=== PATIENT | male | born 1960 | race Caucasian/White ===

== ENCOUNTER 2016-09-16 17:30 | Inpatient (IN) | payer OTHER ==
--- NOTE | ~2016-09-16 | PN ---
Unit #: [id number] #: [id number] Patient: DANISH MORGAN [id number] [facility] [address] [place] [address] [id number] MR#: [id number] NAME: DANISH MORGAN ROOM: 30 Age: 56 Sex: M Admission Date: 09/16/2016 : 1960 Attending Physician: Zo Williamson M.D. Admitting Physician: Zo Williamson M.D. Primary Care Physician: Dexter Doctor Not In System [facility] PROGRESS NOTES DATE 09/20/2016 DISCUSSION Mr. Morgan is a 56-year-old, white male who was seen today and chart was reviewed and case was discussed with the staff. He has been anxious, withdrawn, disorganized, and rather seclusive to himself with bizarre behavior, thought blocking, difficulty communicating interaction and has been expressing significant anxiety. Meanwhile, he has been taking medication and tolerating them fairly well with no reported side effects. MENTAL STATUS EXAM Middle-aged white male who was casually dressed with marginal personal hygiene, appears to be in no acute distress or discomfort. He was awake and alert with impaired attention and concentration. His mood was anxious with congruent affect. His speech was slow and tangential. His thought processes were disorganized with some looseness of associations and paranoid ideations. His insight and judgement remains significantly impaired. TREATMENT PLAN 1. We will continue him on his current medications and treatment protocol. We will monitor his response to the medication and make further adjustments as needed. 2. We will continue to follow up. Dictated by... Brianda Ram/tawanna TD: 09/21/2016 04:21 JOB #: [id number] Unit #: [id number] #: [id number] Patient: DANISH MORGAN [facility] PROGRESS NOTES Page 1 of 1 X Zo Williamson MD PROGRESS NOTE
--- NOTE | ~2016-09-16 | PN ---
Unit #: [id number] #: [id number] Patient: DANISH MORGAN [id number] [facility] [address] [place] [address] [id number] I MR#: [id number] NAME: DANISH MORGAN ROOM: 30 Age: 56 Sex: M Admission Date: 09/16/2016 : 1960 Attending Physician: Zo Williamson M.D. Admitting Physician: Zo Williamson M.D. Primary Care Physician: Dexter Doctor Not In System [facility] PROGRESS NOTES DATE OF SERVICE 09/21/2016 DISCUSSION Mr. Morgan is a 56-year-old white male who was seen today. Chart was reviewed and case was discussed with the staff. He appears to be doing somewhat better and has been showing improvement in his depression and anxiety and has been cooperative and compliant with treatment recommendations as he has been taking the medications and tolerating them fairly well with no reported side effects. MENTAL STATUS EXAMINATION Middle-aged white male who is casually dressed with fair personal hygiene, appears to be in no acute distress or discomfort. The patient was awake and alert on interaction with intact orientation. His mood is anxious and depressed with congruent affect. His speech is slow and restricted in content. His thought process were disorganized with some looseness of associations and flight of ideas. His insight and judgment remain significantly impaired. TREATMENT PLAN 1. We will continue him on his current medications and treatment protocol. We will monitor his response to the medications and make further adjustments as needed. 2. We will continue to follow up. Dictated by... Brianda Ram/pino TD: 09/22/2016 09:00 JOB #: [id number] Unit #: [id number] #: [id number] Patient: DANISH MORGAN PROGRESS NOTES Page 1 of 1 X Zo Williamson MD PROGRESS NOTE
--- NOTE | ~2016-09-16 | HP ---
Unit #: [id number] #: [id number] Patient: DANISH BAZAN [id number] [place] [address] [id number] I MR#: [id number] NAME: DANISH BAZAN ROOM: P130 Age: 56 Sex: M Admission Date: 09/16/2016 : 1960 Attending Physician: Zo Williamson M.D. Admitting Physician: Zo Williamson M.D. Primary Care Physician: Generic Doctor Not In System HISTORY AND PHYSICAL HISTORY OF PRESENT ILLNESS Danish is a 56 year old admitted to [address] [place] [address] with depression and verbalizing wanting to hurt himself. PAST MEDICAL HISTORY 1. Degenerative disc disease. 2. History of DVT, years ago. PAST SURGICAL HISTORY Bilateral inguinal hernia repair. ALLERGIES Haldol, trazodone, Benadryl, Seroquel, Celebrex, Cymbalta, Latuda. SOCIAL HISTORY Smokes less than 1 pack per day. Denies alcohol and illicit drug use. FAMILY HISTORY Medically noncontributory. REVIEW OF SYSTEMS CONSTITUTIONAL: No fever or chills. HEENT: Denies any sore throat, ear pain or runny nose. CARDIOVASCULAR: Denies chest pain, irregular heart rhythm or palpitations. CHEST: Denies shortness of breath or cough. No hemoptysis. GASTROINTESTINAL: Denies nausea, vomiting, diarrhea or chronic constipation. ENDOCRINE: Denies history of increased thirst or urination. No recent significant weight loss or gain. GENITOURINARY: Denies dysuria, frequency, or hematuria. SKIN: Denies any rashes. HEMATOLOGIC: Denies history of increased bleeding or bruising. MUSCULOSKELETAL: Denies any hot, swollen joints. No generalized muscle pain. NEUROLOGIC: Denies problems with vision or speech. No frequent, severe headaches. No numbness, tingling or weakness in any extremities. Denies loss of bladder or bowel control. CURRENT MEDICATIONS 1. Protonix 40 mg daily. 2. Amitriptyline 100 mg q.h.s. 3. Tegretol XR 300 mg b.i.d. 4. Milk of Magnesia p.r.n. Unit #: [id number] #: [id number] Patient: DANISH BAZAN 5. Maalox p.r.n. 6. Tylenol p.r.n. 7. Vistaril p.r.n. PHYSICAL EXAMINATION GENERAL: Alert, well-nourished, in no apparent distress. VITAL SIGNS: Blood pressure 142/68, heart rate 80, respirations 16, temperature 98.6. WEIGHT: 230. HEIGHT: 6 feet 2 inches. SKIN: Warm and dry without rash or lesion. HEENT: Normocephalic. TMs not viewed. Oral and nasal passages clear. Conjunctivae clear. PERRLA. EOMs intact. NECK: Supple without lymphadenopathy or thyromegaly. HEART: Regular rate and rhythm without murmur. LUNGS: Clear. ABDOMEN: Soft, nontender. : Not done. EXTREMITIES: No evidence of cyanosis, clubbing or edema. Moves all without focal deficit. NEUROLOGICAL: Grossly within normal limits. Cranial Nerves: II: Visual serrano are intact. III, IV AND : Extraocular movements are intact. Pupils are equal, round and reactive to light. V: Facial sensation is grossly normal. VII: Facial movements and expression are normal. VIII: Auditory acuity grossly intact. IX, X: Uvula is midline. Phonation is normal. XI: Patient shrugs shoulders and turns head normally. XII: Tongue protrudes in the midline. Sensory and Motor Function: Sensory and motor sensation is grossly normal. Motor: moves all extremities well. Coordination: Gait is normal. Deep Tendon Reflexes: Intact. IMPRESSION Psychiatric admission. RECOMMENDATIONS PSYCHIATRIC: Per psychiatrist. MEDICAL: See no contraindication to participate in facility's activities. MEDICAL PROGNOSIS Good. MEDICAL CONDITION Stable. Dictated by... Estefanía Russell P.A.-C. for Brianda Palafox/rehan TD: 09/18/2016 14:51 JOB #: [id number] Unit #: [id number] #: [id number] Patient: DANISH BAZAN HISTORY AND PHYSICAL Page 1 of 1 X Estefanía Russell HISTORY AND PHYSICAL
--- NOTE | ~2016-09-16 | PA ---
Unit #: [id number] #: [id number] Patient: DANISH MORGAN [id number] [facility] [address] [place] [address] [id number] I MR#: [id number] NAME: DANISH MORGAN ROOM: P130 Age: 56 Sex: M Admission Date: 09/16/2016 : 1960 Date of Assessment: Attending Physician: Zo Williamson M.D. Admitting Physician: Zo Williamson M.D. Primary Care Physician: Dexter Doctor Not In System PSYCHIATRIC ASSESSMENT DATE OF SERVICE 09/17/2016. IDENTIFYING DATA Mr. Morgan is a 56-year-old single white male who is a resident of [place], [place] and was self-referred to the hospital on a voluntary basis as a transfer from [facility]. CHIEF COMPLAINT "Suicidal ideations." HISTORY OF PRESENT ILLNESS Mr. Morgan is a 56-year-old white male who presented to [facility] with suicidal ideation and plan to walk in front of a train. The patient reports that he is feeling suicidal because he thinks the others are out to kill him and reports that he is also having an increasing anger with plan to stab himself and reports that he has been noncompliant with his home medications over the past week and that he relocated from [place] to [place] this week and is currently homeless and has been decompensating, and reports increasing depression, anger, agitation, irritability, feelings of hopelessness and helplessness, and suicidal ideation and as such, recommendation for inpatient level of care for safety and stabilization was made. SUBSTANCE ABUSE HISTORY The patient denies any history of alcohol or drug abuse. PAST PSYCHIATRIC HISTORY The patient has had a history of psychiatric treatment in the past, though he reports that he is currently relocating from [place] to [place] and does not have a provider and has not been taking his medications and as such, has been decompensating. PAST MEDICAL HISTORY Gastroesophageal reflux disease. ALLERGIES No known medication allergies. PERSONAL AND SOCIAL HISTORY A 56-year-old white male who reports that he is single, unemployed, and essentially homeless and has poor social support system. Unit #: [id number] #: [id number] Patient: DANISH MORGAN MENTAL STATUS EXAMINATION Middle-aged white male who was casually dressed with fair personal hygiene, and appears to be in no acute distress or discomfort. He was awake and alert on interaction with intact orientation to time, place, and person. His mood was anxious and depressed with a congruent affect. His speech was slow and restricted in content. His thought processes were disorganized with some looseness of associations, paranoid ideations, suicidal ideations, and auditory hallucinations. His insight and judgment remain significantly impaired. DIAGNOSTIC IMPRESSION Psychiatric: Bipolar disorder, most recent episode depressed, recurrent, moderate, without psychotic features. Medical: None. Stressors: Moderate psychosocial stressors. TREATMENT PLAN 1. The patient has presented with a history of mood disorder and has been decompensating and will need inpatient hospitalization for safety and stabilization. We will start him back on his home medications. We will adjust the medications and monitor response. 2. Supportive therapy was provided to the patient. 3. Safe, structured, and nourishing environment will be provided. ESTIMATED LENGTH OF STAY 5 to 7 days. ABILITY TO HELP SELF Limited. WILLINGNESS TO HELP SELF The patient appears to be willing to help self. STRENGTHS 1. Communicative. 2. Cooperative. PROBLEMS 1. Chronic dysphoric symptoms. 2. Poor social support system. DISCHARGE CRITERIA This will be contingent upon the patient's ability to show resolution of his depression and anxiety and his ability to stay safe to himself and others, particularly after discharge from the hospital. Dictated by... Brianda Ram/angie TD: 09/17/2016 06:55 JOB #: [id number] Unit #: [id number] #: [id number] Patient: DANISH MORGAN PSYCHIATRIC ASSESSMENT Page 1 of 1 X Zo Williamson MD X PSYCHIATRIC ASSESSMENT
--- NOTE | ~2016-09-16 | DS ---
Unit #: [id number] #: [id number] [facility]APP [id number] [facility] [place] [address] [id number] I MR#: [id number] NAME: DANISH MORGAN ROOM: 30 Age: 56 Sex: M Admission Date: 09/16/2016 : 1960 Discharge Date: 09/22/2016 Attending Physician: Zo Williamson M.D. Primary Care Physician: Generic Doctor Not In System DISCHARGE SUMMARY IDENTIFYING DATA Mr. Morgan is a 46-year-old white male with a history of mood disorder, who was self referred to the hospital. DISCHARGE DIAGNOSES Psychiatric: Bipolar disorder, most recent episode depressed, recurrent, moderate, without psychotic features. Medical: None. Stressors: Moderate psychosocial stressors. HISTORY OF PRESENT ILLNESS Please see initial psychiatric evaluation for details. PAST PSYCHIATRIC HISTORY Please see initial psychiatric evaluation for details. PAST MEDICAL HISTORY Please see initial psychiatric evaluation for details. HOSPITAL COURSE The patient was admitted to the adult psychiatric unit at [facility] zamzam [place] on 72 hours hold and was started back on his home medications including his Seroquel, which was titrated up. Risperdal, which he did not like very much. We then switched him to Zyprexa with good tolerability and therapeutic response. The patient is taking medications regularly and is tolerating them fairly well and was able to show a decent therapeutic response and as well as continue treatment on an outpatient basis and as such, it was decided that he will be discharged home and will continue treatment on an outpatient basis. DISCHARGE CONDITION Stable. PROGNOSIS Fair. Dictated by... Zo Williamson M.D. IAA/modl Unit #: [id number] #: [id number] Patient: DANISH RAPP TD: 10/27/2016 07:05 JOB #: [id number] DISCHARGE SUMMARY Page 1 of 1 X Zo Williamson MD X DISCHARGE SUMMARY
--- NOTE | ~2016-09-16 | PN ---
Unit #: [id number] #: [id number] Patient: DANISH MORGAN [id number] [facility] [address] [place] [address] [id number] MR#: [id number] NAME: DANISH MORGAN ROOM: 30 Age: 56 Sex: M Admission Date: 09/16/2016 : 1960 Attending Physician: Zo Williamson M.D. Admitting Physician: Zo Williamson M.D. Primary Care Physician: Dexter Doctor Not In System [facility] [employer] NOTES DATE OF SERVICE 09/19/2016 DISCUSSION Mr. Morgan is a 56-year-old white male who was seen today. Chart was reviewed and case was discussed with the staff. He has been anxious, withdrawn, disorganized and seclusive to himself, very anxious and restless with significant thought blocking, having difficulty expressing himself, and every time I initiate the medication, he comes back stating that he is not going to take his medications and that she has an allergic reaction to that medication. Seroquel was switched to Risperdal yesterday. Even though there is no allergies listed to Risperdal, he now states that he is allergic to Risperdal, and therefore he does not want to take the medication. He complains of anxiety and keeps on demanding Klonopin to be given to him. MENTAL STATUS EXAMINATION Middle-aged white male who is casually dressed with fair personal hygiene, appears to be in no acute distress or discomfort. He was awake and alert with impaired attention and concentration. His mood is anxious with congruent affect. Speech is slow and tangential. His thought processes were disorganized with some looseness of associations and flight of ideas. His insight and judgment remain significantly impaired. TREATMENT PLAN 1. We will continue him on his current medications and treatment protocol. We will monitor his response to the medications and make further adjustments as needed. 2. We will continue to follow up. Dictated by... Zo Williamson M.D. ARLENE/bzg TD: 09/20/2016 10:37 JOB #: [id number] Unit #: [id number] #: [id number] Patient: DANISH MORGAN [facility] NOTES Page 1 of 1 X Zo Williamson MD PROGRESS NOTE
--- NOTE | ~2016-09-16 | PN ---
Unit #: [id number] #: [id number] Patient: DANISH MORGAN [id number] [facility] [address] [place] [address] [id number] I MR#: [id number] NAME: DANISH MORGAN ROOM: 30 Age: 56 Sex: M Admission Date: 09/16/2016 : 1960 Attending Physician: Zo Williamson M.D. Admitting Physician: Zo Williamson M.D. Primary Care Physician: Generic Doctor Not In System [facility] PROGRESS NOTES DATE 09/22/2016 DISCUSSION Mr. Morgan is a 56-year-old white male who was seen today and chart was reviewed and case was discussed with the staff. He has been anxious, withdrawn and rather seclusive to himself. Meanwhile, he reports doing better in his mood and depression and has been taking medications and tolerating them fairly well. MENTAL STATUS EXAMINATION Middle-aged white male who was casually dressed with fair personal hygiene and appears to be in no acute distress or discomfort. He was awake and alert on interaction with intact orientation. His mood was anxious with congruent affect. He denies any suicidal or homicidal ideation. His insight and judgement remains slightly impaired. TREATMENT PLAN 1. We will continue him on his current medications and treatment protocol and will monitor his response to the medications and make further adjustments as needed. 2. Will continue to follow up. Dictated by... Zo Williamson M.D. IAA/rehan TD: 09/22/2016 17:22 JOB #: [id number] Unit #: [id number] #: [id number] [facility] Page 1 of 1 X Zo Williamson MD PROGRESS NOTE
--- NOTE | ~2016-09-16 | PN ---
Unit #: [id number] #: [id number] Patient: DANISH MORGAN [id number] [facility] [address] [place] [address] [id number] MR#: [id number] NAME: DANISH MORGAN ROOM: 30 Age: 56 Sex: M Admission Date: 09/16/2016 : 1960 Attending Physician: Zo Williamson M.D. Admitting Physician: Zo Williamson M.D. Primary Care Physician: Dexter Doctor Not In System [facility] PROGRESS NOTES DATE 09/18/2016 DISCUSSION Mr. Morgan is a 56-year-old, white male who was seen today and chart was reviewed and case was discussed with the staff. He was seen to be anxious, restless, laying in his bed and was constantly moving and scratching his bottom and explaining with significant anxiety and was unable to carry on any meaningful conversation as he was trying to speak and had thought blocking and was rubbing his forehead and brushing his hair with his hand and overall was causing to be quite disorganized. He came in on Seroquel which was started back but then he stated that he does not want to take the medication as he does not like the way it makes him feel and Seroquel since then has been discontinued. MENTAL STATUS EXAM Middle-aged white male who was casually dressed with fair personal hygiene, appears to be in slight distress or discomfort. He was awake and alert with impaired attention and concentration. His mood was anxious with congruent affect. His speech was slow and tangential. His thought processes was disorganized with some looseness of associations and flight of ideas. His insight and judgement remains significant impaired. TREATMENT PLAN 1. We will continue him on his current medications and treatment protocol. We will monitor his response to the medication and make further adjustments as needed. 2. We will continue to follow up. Dictated by... Brianda Ram/tawanna TD: 09/19/2016 03:13 JOB #: [id number] Unit #: [id number] #: [id number] Patient: DANISH MORGAN [facility] NOTES Page 1 of 1 X Zo Williamson MD PROGRESS NOTE
[2016-09-17 12:30] LABS: BASOPHIL# 0.1 X10e3 (0-0.3); BASOPHIL% 0.7 % (0-2.5); EOSINOPHIL# 0.1 X10e3 (0-0.7); EOSINOPHIL% 1.5 % (0.0-7.0); HEMOGLOBIN 13.4 gm/dL (13.0-16.0); LYMPHOCYTE# 1.7 X10e3 (1.0-3.5); LYMPHOCYTE% 19.2 % (17.0-45.0); MEAN CELL VOLUME 87.6 FL (83-96); MEAN PLATELET VOLUME 9.6 FL (6.5-11.5); MONOCYTE# 0.6 X10e3 (0-1.0); MONOCYTE% 7.3 % (3.0-12.0); NEUTROPHIL# 6.3 X10e3 (1.5-7.1); NEUTROPHIL% 71.3 % (40-75); PLATELET COUNT 256 X10e3 (140-420); RED BLOOD COUNT 4.79 X10e (3.90-5.60); RED CELL DISTRIBUTION WIDTH 16.8 % (11.0-15.5); WHITE BLOOD COUNT 8.8 X10e3 (4.0-10.5)
[2016-09-17 12:33] LABS: DIFF IND NO
[2016-09-17 12:44] LABS: ALBUMIN SERUM 3.5 g/dL (3.5-5.0); BILIRUBIN,TOTAL 0.5 mg/dL (0.2-2.0); CALCIUM SERUM 9.1 mg/dL (8.4-10.2); GLOM FILT RATE Estimated 82.6 mL/min (>60); POTASSIUM 3.7 mmol/L (3.5-5.1); PROTEIN TOTAL SERUM 6.2 g/dL (6.0-8.3)
[2016-09-18 11:48] LABS: URINE APPEARANCE CLEAR; URINE BILIRUBIN NEG (NEG); URINE BLOOD NEG (NEG); URINE COLOR YELLOW; URINE GLUCOSE NEG (NEG); URINE KETONE NEG (NEG); URINE LEUKOCYTE ESTERASE TRACE (NEG); URINE NITRATE NEG (NEG); URINE PH 7.5 (5-8); URINE PROTEIN NEG (NEG); URINE SPECIFIC GRAVITY 1.014 (1.003-1.035); URINE UROBILINOGEN 0.2 MG/DL (NEG)
[2016-09-18 11:55] LABS: U HYALINE CASTS AUWI 0-2 /[LPF]; URBCS1 AUWI 0-2 /[HPF] (0-2); URINE BACTERIA AUWI NEG (NEGATIVE); URINE SQUAMOUS EPITHELIAL CELL NONE SEEN /[HPF]
[2016-09-18 12:12] LABS: AMPHETAMINE NEG (NEG); BARBITURATES NEG (NEG); BENZODIAZEPINES NEG (NEG); COCAINE NEG (NEG); MARIJUANA NEG (NEG); OPIATES NEG (NEG); TRICYCLIC ANTIDEPRESSANTS POS (NEG); U METHADONE NEG (NEG)
== END 2016-09-22 14:30 | disposition home or self-care (01) | DRG 885 ==
LOC: P1S 21:12
PROVIDERS: Psychiatry & Neurology Psychiatry
DX: F31.32 Bipolar disorder, current episode depressed, moderate (principal); R45.851 Suicidal ideations; Z59.0 Homelessness; Z86.718 Personal history of other venous thrombosis and embolism; Z88.8 Allergy status to other drugs, medicaments and biological substances; F17.210 Nicotine dependence, cigarettes, uncomplicated
CPT/HCPCS: 80053; 80156; 80307; 81003; 85025